=== PATIENT | male | born 1965 | race Caucasian/White ===

== ENCOUNTER 2025-05-28 11:24 | Outpatient (AMB) | payer MEDICARE, MEDICAID, SELFPAY ==
--- NOTE | 2025-05-28 11:33 | A.OFFVIS_ITS ---
Intake Visit Reasons: increased pain Intake Note: Patient is a 59 year old male here for lower back pain jul 01 seeing A surgeon for the back pain looking for medication for pain ocy 5mg half tab is making it fifty percent better Allergies No Known Allergies Allergy (Verified 05/28/25 11:35) HPI Comments Details: History of Present Illness The patient is a 59 year old male presenting for medication management for chronic pain. He reports he is under the care of a pain medicine specialist, Dr. Puga, whom he is scheduled to see on July 01. He is currently prescribed Percocet and notes that the medication is occasionally helpful. Patient did undergo right L5 TFESI Nov 04 2024 reported 6% reduction of his pain for a month and then his pain returned. Patient is finding that epidural injections are becoming less helpful. Patient would like to consider more definitive treatment such as surgery. Is pending visit with Dr. Richard. He receives 28 pills at a time and rations them by cutting them in half, typically taking one pill per day. He states that some days require two pills. Procedure: Right L5 TFESI 07/02/2024 60% reduction of his pain Bilateral L5 TFESI 6. % reduction of his pain for 2 months 11/04/2024 PFSH Surgical History (Updated 05/27/25 @ 07:24 by Marylou Cooper MA) H/O shoulder surgery Social History (Updated 05/27/25 @ 07:25 by Marylou Cooper MA) Alcohol intake: current Alcohol intake frequency: does not drink Patient Tobacco Use Status: Current everyday Tobacco user Review of Systems Narrative Review of Systems Physical Exam Exam Exam: Physical Exam Lumbar Spine: Examination of his lumbar spine, there is no visible swelling or deformity. He is tender to lower lumbar facets. He is otherwise nontender. Full range of motion of the lumbar spine. He does have an increase in pain when with facet loading. Special Tests: Lhermittes sign was negative Heel Toe walk is normal Left straight leg raise: Negative Right straight leg raise: Positive right Special tests Jodie test is negative Ganslen's test is negative SI Joint compression test negative Nina test negative Piriformis stretch is negative Lower Extremities: Full range of motion bilateral lower extremities. No calf pain or edema Neuro: Sensation: Intact to lower extremities bilaterally Strength L2 (Psoas): 5/5 on the left and 5/5 on the right. L3 (Quads): 5/5 on the left and 5/5 on the right. L4 (Ant tibialis): 5/5 on the left and 5/5 on the right. L5 (EHL) 5/5 on the left and 5/5 on the right. S1 (Gastroc): 5/5 on the left and 5/5 on the right. DTR L4: (Patellar) Left 2 Right 2 S1: (Achilles) Left 1 Right 1 Babinski Downgoing No pathologic clonus. No involuntary movement. Results Reviewed Results Reviewed: MRI lumbar spine 03/30/2025 impression: Degenerative changes of the lumbar spine with central canal or foraminal na rrowing. [id number] central canal stenosis at L4-5 with severe bilateral neuroforaminal stenosis. Severe bilateral neuroforaminal stenosis at L5-S1. Assessment & Plan Assessment & Plan (1) Lumbar radiculopathy: Code(s): M54.16 - Radiculopathy, lumbar region Category: Medical (2) Lumbar spondylosis: Code(s): M47.816 - Spondylosis without myelopathy or radiculopathy, lumbar region Category: Medical Plan Pain Management - Analgesia: The patient uses Percocet for pain, which he reports is occasionally helpful. - Aberrant Drug Related Behaviors: The patient reports receiving 28 pills at a time, which he cuts in half to manage his usage. - He typically takes one pill a day but sometimes requires two pills. Plan Patient was informed and verbally consented to the use of an ambient scribe for clinic note documentation during this visit. 1. Chronic Pain The patient is managing his pain with Percocet and has an upcoming appointment with his pain neurosurgeon, Dr. Puga, on July 01. A prescription for 28 pills of Percocet will be sent to bridge the time until his specialist appointment. He is advised to follow up with Dr. Puga as scheduled. Discussion Notes I will send a prescription for 28 pills of Percocet to manage his pain. I advised him to continue with his scheduled appointment with Dr. Aleman on July 01 and to then see how to proceed. Patient Instructions - I will send a prescription for 28 Percocet pills for you. - Please keep your appointment with the pain specialist, Dr. Aleman, on July 01. - Please make a follow-up appointment here for one month from now. Medications: New oxycodone-acetaminophen 5-325 mg (Percocet) Partial Fill upon patient request. 1 tab PO Q6H PRN 28 tabs 0RF pain M47.816 - Spondylosis without myelopathy or radiculopathy, lumbar region, M54.16 - Radiculopathy, lumbar region Coding Level of Care Code Tele Est Pt Level 3 (06727) Diagnoses Lumbar radiculopathy M54.16 Lumbar spondylosis M47.816
== END 2025-05-28 12:23 | disposition home or self-care (01) ==
LOC: HO.HPHYS 11:24
PROVIDERS: PCP Internal Medicine; Visit Provider Physician Assistant
DX: M54.16 Radiculopathy, lumbar region (principal); M47.816 Spondylosis without myelopathy or radiculopathy, lumbar region
CPT/HCPCS: 99213

== ENCOUNTER → 2025-05-28 11:24 | Outpatient (BNVA) | payer MEDICARE, MEDICAID, SELFPAY | PROVIDERS: PCP Internal Medicine; Visit Provider Physician Assistant | DX: M47.816 Spondylosis without myelopathy or radiculopathy, lumbar region (principal); M54.16 Radiculopathy, lumbar region | CPT/HCPCS: 99212 ==